=== PATIENT | female | born 1955 | race Caucasian/White ===

== ENCOUNTER → 2021-09-09 | Outpatient (CLI) | payer MEDICARE | LOC: CARD 15:00 | PROVIDERS: ATTEND Family Medicine | DX: I08.1 Rheumatic disorders of both mitral and tricuspid valves (principal); Z95.4 Presence of other heart-valve replacement | CPT/HCPCS: 93306 ==

== ENCOUNTER → 2021-10-30 | Outpatient (CLI) | payer MEDICARE ==
[2021-10-30 16:20] LABS: POTASSIUM 3.7 MMOL/L (3.6-5.0)
[2021-10-30 16:26] LABS: CREATININE SERUM 1.18 MG/DL (0.60-1.30)
[2021-10-30 16:28] LABS: MAGNESIUM 2.3 MG/DL (1.6-2.4)
== END ==
LOC: LABNPT 16:02
PROVIDERS: ATTEND Nurse Practitioner Family
DX: I10 Essential (primary) hypertension (principal); E78.2 Mixed hyperlipidemia; I27.21 Secondary pulmonary arterial hypertension; I95.1 Orthostatic hypotension; Z95.4 Presence of other heart-valve replacement
CPT/HCPCS: 80048; 83735

== ENCOUNTER → 2021-11-18 | Outpatient (CLI) | payer MEDICARE ==
[~2021-11-18] MED LIST: RT-ALBUTEROL SULF 2.5 MG/3 ML PRE-MIX VIAL INH ONE
--- NOTE | 2021-11-18 14:44 | Diagnostic Imaging Report ---
INDICATION: Shortness of breath PA and lateral chest There are postoperative changes from valve repair surgery. Heart size and pulmonary vascularity are normal. Lungs are clear. There are no effusions or pneumothoraces. IMPRESSION: No acute abnormalities in the chest. Dictated by: Dictated on workstation # [id number]
== END ==
LOC: RT 13:05
PROVIDERS: ATTEND Internal Medicine Critical Care Medicine
DX: I27.21 Secondary pulmonary arterial hypertension (principal)
CPT/HCPCS: 71046; 94060; 94621; 94726; 94729

== ENCOUNTER 2022-01-14 11:09 | Day surgery (SDC) | payer MEDICARE ==
[2022-01-14] VITALS (9 sets, daily range): BP systolic 109–136; BP diastolic 73–78
[~2022-01-14] VITALS: Ht 165.1 cm; Wt 111.3 kg
[2022-01-14] MEDS ORDERED: NS IV 1000 ML 1,000 ML IV SCH ×2 (11:30→15:45)
[2022-01-14] MEDS ORDERED: LIDOCAINE 1% INJ 20 ML VIAL INJ ONE (11:30)
[2022-01-14 11:52] LABS: HEMATOCRIT 40 % (35-52); HEMOGLOBIN 12.4 g/dL (11.5-16.0); MEAN CORPUSCULAR HEMOGLOBIN 26 pg (25-34); MEAN CORPUSCULAR HGB CONC 31 g/dL (32-36); MEAN CORPUSCULAR VOLUME 84 fL (80-99); MEAN PLATELET VOLUME 10.5 fL (9.0-12.2); PLATELET COUNT 312 10^3/uL (130-400)
[2022-01-14 12:15] LABS: INR 1.1 (0.8-1.4)
[2022-01-14] MEDS ORDERED: NS IV 1000 ML 1,000 ML ONE (12:18)
[2022-01-14] MEDS ORDERED: LIDOCAINE 1% INJ 20 ML VIAL ONE (12:18)
[2022-01-14] MEDS ORDERED: HEParin (CATH LAB) 2,000 ML IV ONE (12:18)
[2022-01-14 12:22] LABS: ALANINE AMINOTRANSFERASE 14 U/L (0-55); ALBUMIN 4.6 GM/DL (3.2-4.5); ALKALINE PHOSPHATASE 91 U/L (40-136); BILIRUBIN,TOTAL 3.2 MG/DL (0.1-1.0); BUN/CREATININE RATIO 16; CALCIUM 10.1 MG/DL (8.5-10.1); CARBON DIOXIDE 21 MMOL/L (21-32); CHLORIDE 102 MMOL/L (98-107); CHOLESTEROL 106 MG/DL (< 200); CREATININE SERUM 1.24 MG/DL (0.60-1.30); GFR ESTIMATED 47; GLUCOSE 141 MG/DL (70-105); HDL CHOLESTEROL 29 MG/DL (40-60); POTASSIUM 3.8 MMOL/L (3.6-5.0); SODIUM 139 MMOL/L (135-145); TOTAL PROTEIN 8.2 GM/DL (6.4-8.2); TRIGLYCERIDES 86 MG/DL (<150); VLDL CHOLESTEROL 17 MG/DL (5-40)
[2022-01-14] MEDS ORDERED: POTA-51 PO (12:41)
[2022-01-14] MEDS ORDERED: ACET325T38 PO (12:41)
[2022-01-14] MEDS ORDERED: ASPI-1238 PO (12:41)
[2022-01-14] MEDS ORDERED: ATOR40TA70 PO (12:41)
[2022-01-14] MEDS ORDERED: FURO80TA3 PO (12:41)
[2022-01-14] MEDS ORDERED: OMEP20TA56 PO (12:41)
[2022-01-14] MEDS ORDERED: MTP100TCR PO (12:41)
[2022-01-14] MEDS ORDERED: FOLI0.8C2 PO (12:41)
[2022-01-14] MEDS ORDERED: fentaNYL INJ 100 MCG/2 ML AMP ONE (14:21)
[2022-01-14] MEDS ORDERED: MIDAZOLAM 5 MG/5 ML (VERSED) VIAL ONE (14:21)
[2022-01-14] MEDS ORDERED: diphenhydrAMINE 50 MG/ML INJ (BENADRYL) ONE (14:29)
--- NOTE | 2022-01-14 14:51 | Cardiac Procedure Note-CS/ASA ---
Pre-Procedure Note Pre-Op Procedure Note H&P Reviewed The H&P was reviewed, patient examined and no changes noted. Date H&P Reviewed: Jan 14, 2022 Time H&P Reviewed: 14:00 Conscious Sedation Pre-Proced Time 14:00 ASA Score 3 For ASA 3 and 4: Consider anesthesia and medical clearance. Also, for patients with a history of failed moderate sedation consider anesthesia. Airway Lungs Heart ASA score ASA 1: a normal healthy patient ASA 2: a patient with a mild systemic disease (mid diabetes, controlled hypertension, obesity ASA 3: a patient with a severe systemic disease that limits activity (angina, COPD, prior Myocardial infarction) ASA 4: a patient with an incapacitating disease that is a constant threat to life (CHF, renal failure) ASA 5: a moribund patient not expected to survive 24 hrs. (ruptured aneurysm) ASA 6: a declared brain- patient whose organs are being harvested. For emergent operations, add the letter E after the classification Mallampati Classification Grade 3 Sedation Plan Analgesia, Amnesia, Plan communicated to team members The patient is an appropriate candidate to undergo the planned procedure, sedation, and anesthesia. The patient immediately re-assessed prior to indication. PAUL EDWARDS MD FACP FACC CCDS Jan 14, 2022 14:51
[2022-01-14] MEDS ORDERED: PATIENT MAY USE OWN MEDS, ALL PO SCH (15:45)
[2022-01-14] MEDS ORDERED: SPIR25TA5 PO (15:49)
--- NOTE | 2022-01-14 15:50 | Discharge Inst-Cardiology ---
Discharge Inst-Cardiac Discharge Medications New Medications: Spironolactone (Spironolactone) 25 Mg Tablet 25 MG PO DAILY, #30 TAB 3 Refills Continued Medications: Acetaminophen (Tylenol) 325 Mg Tablet 650 MG PO Q6H PRN for PAIN-MILD (1-4), TAB Aspirin (Aspirin EC) 81 Mg Tablet.dr 81 MG PO HS, TAB Atorvastatin Calcium (Atorvastatin Calcium) 40 Mg Tablet 40 MG PO HS, TAB Folic Acid (Fa-8) 0.8 Mg Capsule 1.6 MG PO DAILY, CAP TAKES 2 CAPSULES Furosemide (Furosemide) 80 Mg Tablet 160 MG PO DAILY, TAB TAKES 2 (80MG) TABLETS Metoprolol Succinate (Metoprolol Succinate) 100 Mg Tab.er.24h 50 MG PO BID, TAB TAKES (100MG) TABLET Omeprazole (Omeprazole) 20 Mg Tablet.dr 20 MG PO Q72H, TAB Potassium Chloride (Potassium Chloride) 20 Meq Tablet.er 20 MEQ PO DAILY, TAB PAUL EDWARDS MD FACP FAC CCDS Jan 14, 2022 15:50
--- NOTE | 2022-01-14 15:51 | Discharge Inst-Post CATH ---
Discharge Inst-CATH/EP Post Cardiac Cath/EP D/C Inst Follow Up/Plan F/u with Dr Gutierres in 4 weeks ACTIVITY * Go Home directly and rest. * Limit activity of the leg (or wrist if it was used) for 7 days including aerobics, swimming, jogging, bicycling, etc. * Restrict stair-climbing for 7 days if possible, if not, climb up with your n on-cath leg, then bring together on the same step. * Avoid lifting, pushing, pulling or excessive movement of the affected ex tremity for 7 days. * Customary sexual activity may be resumed after 2 days-use caution not to use a position that strains or causes pain to the affected extremity. * No driving for 24 hours. * NO SMOKING. * Avoid straining for bowel movements for 7 days. * Gentle walking on level ground is allowed. * Returning to work will depend on the type of procedure and the results. Your doctor will discuss this with you. CALL YOUR DOCTOR FOR ANY OF THE FOLLOWING: *If bleeding from the puncture site occurs- Apply gentle pressure to site with clean cloth and call your doctor or EMS. * If a knot or lump forms under the skin, increases in size, or causes pain. * If bruising appears to be worsening or moving further down your leg instead of disappearing. * Temperature above 101 F. CARE OF YOUR GROIN INCISION; * Bruising or purple discoloration of the skin near the puncture site is common. * You may shower only, no bathtub bathing for 5 days. Be careful to avoid slipping as your leg may feel stiff. * If a closure device was used on your femoral artery, please see the attached guide regarding care of the device and your leg. * Leave dressing on FOR 24 hours. CARE OF YOUR WRIST INCISION; * Bruising or purple discoloration of the skin near the puncture site is common. * You may shower. * DO NOT submerge wrist. * Leave dressing on FOR 24 hours. PAUL GUTIERRES MD FACP FAC CCDS Jan 14, 2022 15:50
--- NOTE | 2022-01-14 20:10 | CARDIAC CATHETERIZATION ---
DATE OF SERVICE: 01/14/2022 CARDIAC CATHETERIZATION REPORT The patient is a 66-year-old lady who had marked pulmonary hypertension on echocardiography. She has a history of aortic valve replacement. She has been diagnosed with diastolic heart failure. Complete heart catheterization was recommended. Informed consent was obtained. PROCEDURE: She was brought to the cardiac catheterization laboratory in a fasting state. Right groin was prepared and draped in the usual sterile fashion. Lidocaine 1% was used for local anesthesia. Modified Seldinger technique used to advance a 5-St Lucian sheath in the right femoral artery. Modified Seldinger technique was used to advance a 7-[place] Lucian sheath into the right femoral vein. Right heart catheterization was carried out using a 7-St Lucian [place]-Vicky catheter. This was then removed. A 5-[place] Lucian JL4 catheter was used for left coronary angiography, 5-St Lucian JR4 catheter for right coronary angiography, 5-[place] Lucian pigtail catheter was used for left heart catheterization. The pigtail was then pulled back and removed. Angiography of the right femoral artery was carried out through the sheath. Mynx was used to achieve arterial hemostasis. Manual pressure was used to achieve venous hemostasis. She tolerated the procedure well. HEMODYNAMICS: Pulmonary wedge pressure is 30 mmHg. Pulmonary arterial pressure was 121/43 with a mean of 72 mmHg. Right ventricular pressure is 120/25, left ventricular pressure is 165/19. Ascending aortic pressure was 124/67 with a mean 87 mmHg. There is approximately 40 mm pressure gradient on pullback across the aortic valve. Oxygen saturation in various right heart chambers did not show any evidence of intracardiac shunt. Pulmonary vascular resistance is 13.37 Wood units. Cardiac output by thermodilution is 4.07. Cardiac index by thermodilution is 1.89. CORONARY ANGIOGRAPHY: Left main coronary artery, left anterior descending artery, left circumflex artery, right coronary artery showed mild plaques. Right coronary artery is dominant. CONCLUSIONS: 1. Severe pulmonary hypertension. 2. Elevated pulmonary wedge pressure. 3. A 40 mm pressure gradient on pullback across a bioprosthetic aortic valve. 4. No significant obstructive coronary artery disease. DISCUSSION AND RECOMMENDATIONS: Based on results of the study, it appears appropriate to continue a conservative approach. Diuretics are being continued. She continues to follow with the pulmonology for further evaluation and treatment of pulmonary hypertension. Outpatient followup is advised. Job ID: [id number] DocumentID: [id number] Dictated Date: 01/14/2022 15:59:47 Vacuum Drier Tender Date: 01/14/2022 20:09:46 Dictated By: PAUL EDWARDS MD, MA, FACP, FACC, MTDD
== END 2022-01-14 19:00 | disposition home or self-care (01) ==
LOC: CATH 11:09
PROVIDERS: ATTEND Internal Medicine Cardiovascular Disease
DX: I27.21 Secondary pulmonary arterial hypertension (principal); I11.0 Hypertensive heart disease with heart failure; I50.33 Acute on chronic diastolic (congestive) heart failure; E78.2 Mixed hyperlipidemia; I95.1 Orthostatic hypotension; Z79.82 Long term (current) use of aspirin
CPT/HCPCS: 80053; 80061; 85027; 85610; 85730; 87081; 93005; 93460; C1760; C1894 ×2; 36415

== ENCOUNTER → 2022-02-18 | Outpatient (CLI) | payer MEDICARE ==
[~2022-02-18] MED LIST changes: +ACET325T38 PO; +ASPI-1238 PO; +ATOR40TA70 PO; +FOLI0.8C2 PO; +FURO80TA3 PO; +MTP100TCR PO; +OMEP20TA56 PO; +POTA-51 PO; -RT-ALBUTEROL SULF 2.5 MG/3 ML PRE-MIX VIAL INH ONE; +SPIR25TA5 PO
--- NOTE | 2022-02-18 14:47 | Diagnostic Imaging Report ---
INDICATION: Pulmonary hypertension, unspecified. COMPARISON: 11/18/2021. TECHNIQUE: Frontal and lateral radiographs of the chest dated 02/18/2022. FINDINGS: Post surgical changes of a median sternotomy and prosthetic cardiac valve again noted. The cardiac silhouette is at the upper limits of normal in size. No significant pulmonary vascular congestion. The lungs are clear of focal pulmonary opacity. No pleural effusion. No pneumothorax. No acute osseous abnormality. IMPRESSION: Similar-appearing examination demonstrating post surgical changes without superimposed acute cardiopulmonary abnormality. Dictated by: Dictated on workstation # [id number]
--- NOTE | 2022-02-18 18:12 | Diagnostic Imaging Report ---
Indication: Pulmonary hypertension. Patient was administered 5.5 mCi technetium 99M MAA intravenously and imaging over the chest was performed in multiple obliquities. There is homogeneous perfusion of both lungs. No pleural-based perfusion defects are seen with exception of a small to moderate-sized wedge-shaped defect in the left upper lobe. Right lung shows homogeneous perfusion. Impression: There is a small to moderate-sized wedge-shaped perfusion defect left upper lobe. Dictated by: Dictated on workstation # [id number]
== END ==
LOC: CARD 09:33
PROVIDERS: ATTEND Internal Medicine Critical Care Medicine
DX: I27.20 Pulmonary hypertension, unspecified (principal)
CPT/HCPCS: 71046; 78580; A9540

== ENCOUNTER → 2022-02-26 | Outpatient (CLI) | payer MEDICARE ==
[~2022-02-26] MED LIST changes: +CATHETER FLUSH 10 ML SYR IV PRN; +HOLD METFORMIN - RECEIVED CONTRAST 20 ML VIAL IV SCH; +IOHEXOL 350 MG/ML 100 ML (OMNIPAQUE 350) VIAL IV ONE; +NS 100 ML (IVPB) BAG IV ONE
--- NOTE | 2022-02-26 11:14 | Diagnostic Imaging Report ---
INDICATION: Shortness of breath, recurrent syncope x2 years. TECHNIQUE: Multiple contiguous axial images were obtained through the chest after uneventful bolus administration of intravenous contrast. 3D reconstructed CTA MIP acquisitions were also performed. Auto Exposure Controls were utilized during the CT exam to meet ALARA standards for radiation dose reduction. There is no prior chest CTA for comparison. The pulmonary parenchymal vessels are well-opacified with no CT evidence of pulmonary emboli. The thoracic aorta shows mild atherosclerotic plaquing but no evidence of aneurysm or dissection. Great vessel origins are patent. There are mildly enlarged nodes seen scattered throughout the anterior mediastinum. There is a enlarged node in the pretracheal region measuring 2.3 x 1.9 cm. There are borderline size nodes in the alivia on both sides. There are no enlarged axillary nodes or chest wall masses. There is no pleural or pericardial fluid. There are mitral valvular calcifications. There is aortic valve prosthesis. Lung parenchymal windows demonstrate vague groundglass opacities throughout both lungs. There is no consolidation or pulmonary parenchymal nodule. IMPRESSION: No CT evidence of pulmonary embolus. Mild atherosclerotic plaquing of the aorta without evidence of aneurysm. There are mildly enlarged nodes in the mediastinum and alivia of uncertain etiology, these may be reactive or neoplastic, follow-up is recommended in 3-6 months. There are diffuse groundglass opacities throughout both lungs which are nonspecific, there is no consolidation or pulmonary parenchymal mass. There are postoperative changes of aortic valve replacement. Dictated by: Dictated on workstation # [id number]
== END ==
LOC: RAD 10:30
PROVIDERS: ATTEND Internal Medicine Critical Care Medicine
DX: I26.99 Other pulmonary embolism without acute cor pulmonale (principal); Z95.4 Presence of other heart-valve replacement
CPT/HCPCS: 71275

== ENCOUNTER 2022-03-13 19:54 | Outpatient (CLI) | payer MEDICARE ==
[~2022-03-13 19:54] MED LIST changes: -CATHETER FLUSH 10 ML SYR IV PRN; -HOLD METFORMIN - RECEIVED CONTRAST 20 ML VIAL IV SCH; -IOHEXOL 350 MG/ML 100 ML (OMNIPAQUE 350) VIAL IV ONE; -NS 100 ML (IVPB) BAG IV ONE
== END 2022-03-14 06:20 | disposition home or self-care (01) ==
LOC: SLEEP 19:54
PROVIDERS: ATTEND Internal Medicine Critical Care Medicine
DX: G47.33 Obstructive sleep apnea (adult) (pediatric) (principal); E66.01 Morbid (severe) obesity due to excess calories; I11.0 Hypertensive heart disease with heart failure; I50.32 Chronic diastolic (congestive) heart failure; I27.20 Pulmonary hypertension, unspecified; Z95.2 Presence of prosthetic heart valve; Z98.890 Other specified postprocedural states
CPT/HCPCS: 95810

== ENCOUNTER → 2022-11-18 | Outpatient (CLI) | payer MEDICARE ==
--- NOTE | 2022-11-18 15:10 | Diagnostic Imaging Report ---
PROCEDURE: US Renal Bilateral. TECHNIQUE: Multiple real-time grayscale images were obtained over the kidneys in various projections bilaterally. INDICATION: Chronic kidney disease stage III and hypertension. FINDINGS: Right kidney measures 9.5 x 4.6 x 4.1 cm and the left kidney measures 10.7 x 4.7 x 5.3 cm. Cortical thickness and echogenicity appears normal. There are some echogenic foci in both kidneys which may represent small nonobstructing calculi. There is no hydronephrosis. The bladder was decompressed. IMPRESSION: Questionable bilateral nonobstructing nephrolithiasis. No hydronephrosis is detected. Dictated by: Dictated on workstation # [id number]
== END ==
LOC: RAD 12:37
PROVIDERS: ATTEND Internal Medicine Nephrology
DX: I12.9 Hypertensive chronic kidney disease with stage 1 through stage 4 chronic kidney disease, or unspecified chronic kidney disease (principal); N18.32 Chronic kidney disease, stage 3b
CPT/HCPCS: 76770

== ENCOUNTER → 2022-11-26 | Outpatient (CLI) | payer MEDICARE | LOC: CARD 10:28 | PROVIDERS: ATTEND Internal Medicine Cardiovascular Disease | DX: I08.3 Combined rheumatic disorders of mitral, aortic and tricuspid valves (principal); I27.21 Secondary pulmonary arterial hypertension | CPT/HCPCS: 93306 ==